=== PATIENT | male | born 1940 | race Caucasian/White ===

== ENCOUNTER 2021-08-10 09:14 | Inpatient (IN) | payer MEDICARE ==
[~2021-08-10] VITALS: Ht 172.7 cm; Wt 115.7 kg
[~2021-08-10 09:14] MED LIST: ACTOS 30 MG TAB30 MG PO; ADULT LOW DOSE81 MG PO; ALEVE220 MG PO; APAP650 PO; ARIXTRA SC; ASPIRIN325 OR; BACTRIM DS TAB1 EACH PO; FLUNISOLIDE25 M1 NS; GLUCOPHAGE1000 MG PO; GLUCOSAMINE &1 EACH PO; KEFLEX500 MG PO; KETOCONAZOLE60 GM TP; KLOR-CON 1010 MEQ PO; Keflex PO; LAMISIL15 GM TP; LANTUS SC; LASIX 40 MG TAB40 M1 OR; LISINOPRIL40 MG PO; NIASPAN ER 101000 M1 PO; NORCO 5-325 TA1 EACH PO; NORVASC10 MG PO; NOVOLOG100 UNIT/1 SQ; OXYCODONE HCL5 M1 PO; PERCOCET 5-3251 EACH PO; RESTASIS1 EACH OP; ROXICODONE5 M1 PO; SIMVASTATIN40 MG PO; SOTALOL80 MG PO; TRIAM60 TP; VESICARE10 M1 PO
[2021-08-10 09:23] VITALS: BP 175/87
--- NOTE | 2021-08-10 10:05 | EKG ---
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1940 Requested By: Elvis James Order Number: [id number] MD: Joey Hoskins Measurements Intervals [place] Rate: 108 P: [place]: QRS: -5 QRSD: 89 T: 242 QT: 338 QTc: 453 Interpretive Statements Atrial fibrillation Ventricular premature complex Low voltage, extremity and precordial leads Consider anterior infarct Baseline wander in lead(s) V3 Compared to ECG 04/02/2010 12:08:13 Ventricular premature complex(es) now present Low QRS voltage now present Myocardial infarct finding now present Sinus bradycardia no longer present Electronically Signed On 08-10-2021 10:04:53 CDT by Joey Hoskins [email or web address] <ELECTRONICALLY SIGNED> By: Joey Hoskins MD, FACC 08/10/21 1004 8 8 Joey Hoskins MD, FAC /EPI
[2021-08-10 10:19] LABS: ABSOLUTE BASOPHILS 0.1 thou/uL (0.0-0.2); ABSOLUTE EOSINOPHILS 0.1 thou/uL (0.0-0.7); ABSOLUTE LYMPHOCYTES 1.1 thou/uL (0.8-5.3); ABSOLUTE MONOCYTES 0.9 thou/uL (0.0-1.2); ABSOLUTE NEUTROPHILS 7.7 thou/uL (1.6-8.1); BASOPHILS 1.2 %; EOSINOPHILS 1.2 %; HEMATOCRIT 47.1 % (42.0-52.0); HEMOGLOBIN 15.8 gm/dL (14.0-18.0); LYMPHOCYTES 11.2 %; MCH 29.5 pg (26.0-34.0); MCHC 33.5 g/dL (28.0-37.0); MCV 88.2 fL (80.0-100.0); MONOCYTES 8.9 %; MPV 8.4 fl. (7.2-11.1); NUCLEATED RBCS 0 /100WBC; PLATELET COUNT* 257 thou/uL (150-400); POLYS 77.5 %; RBC 5.35 mil/uL (4.50-6.00); RDW-CV 15.6 % (10.5-14.5); WBC 9.9 thou/uL (4.0-11.0)
[2021-08-10 10:31] LABS: CALCIUM 8.7 mg/dL (8.5-10.1); CREATININE 0.9 mg/dL (0.6-1.3); POTASSIUM 4.1 mmol/L (3.5-5.1)
[2021-08-10 10:35] LABS: ALBUMIN 2.8 g/dL (3.4-5.0); TOTAL BILIRUBIN 0.8 mg/dL (<0.1-1.0); TOTAL PROTEIN 7.1 g/dL (6.4-8.2)
[2021-08-10 15:00] VITALS: BP 159/63
[2021-08-10 20:54] VITALS: BP 167/81
[2021-08-10 21:06] VITALS: BP 172/77
[2021-08-10 21:30] VITALS: BP 148/74
[2021-08-11 00:45] VITALS: BP 165/86
--- NOTE | 2021-08-11 02:05 | NUR ---
ADMIT NOTE: RECIEVED PT FROM ED, UPON ARRIVAL PT PLACED IN BED , NOTED PT PILI VERY WEAK. 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 SAT THEN INCREASED TO 95-97% LUNG SOUNDS WHEEZES IN UPPER BASES. PT PLACED ON HIGN FALL RISK PRECAUTIONS. DISCUSSED PLAN OF CARE,PT VERBALIZE UNDERSTANDING AND AGREEABLE.
[2021-08-11 04:27] VITALS: BP 154/71
[2021-08-11 04:28] LABS: ABSOLUTE EOSINOPHILS 0.1 thou/uL (0.0-0.7); ABSOLUTE LYMPHOCYTES 0.9 thou/uL (0.8-5.3); ABSOLUTE MONOCYTES 0.9 thou/uL (0.0-1.2); ABSOLUTE NEUTROPHILS 9.2 thou/uL (1.6-8.1); BASOPHILS 0.1 %; EOSINOPHILS 0.8 %; HEMATOCRIT 46.2 % (42.0-52.0); HEMOGLOBIN 15.3 gm/dL (14.0-18.0); LYMPHOCYTES 8.4 %; MCH 28.9 pg (26.0-34.0); MCV 87.5 fL (80.0-100.0); MONOCYTES 7.8 %; NUCLEATED RBCS 0 /100WBC; PLATELET COUNT* 268 thou/uL (150-400); POLYS 82.9 %; RBC 5.28 mil/uL (4.50-6.00); RDW-CV 15.4 % (10.5-14.5); WBC 11.1 thou/uL (4.0-11.0)
[2021-08-11 04:48] LABS: ALBUMIN 2.6 g/dL (3.4-5.0); ALKALINE PHOSPHATASE 72 U/L (46-116); ANION GAP 13 mmol/L (7-16); BUN 17 mg/dL (7-18); CALCIUM 8.7 mg/dL (8.5-10.1); CHLORIDE 103 mmol/L (98-107); CHOLESTEROL 122 mg/dL (<200); CO2 24 mmol/L (21-32); CREATININE 0.7 mg/dL (0.6-1.3); GLUCOSE 159 mg/dL (70-99); HDL CHOLESTEROL 31 mg/dL (>40); LDL CHOLESTEROL 76 mg/dL (<100); POTASSIUM 4.1 mmol/L (3.5-5.1); SGOT 23 U/L (15-37); SGPT 28 U/L (30-65); SODIUM 140 mmol/L (136-145); TC:HDL 3.9 Ratio (Not establshd); TOTAL BILIRUBIN 0.9 mg/dL (<0.1-1.0); TOTAL PROTEIN 6.9 g/dL (6.4-8.2); TRIGLYCERIDE 79 mg/dL (<150); VLDL 16 mg/dL (<40)
[2021-08-11 04:50] LABS: SERUM ASSESSMENT CLEAR
[2021-08-11 08:00] VITALS: BP 163/78
[2021-08-11 08:48] LABS: APTT 28.5 Seconds (25.0-31.3); INR 1.1; PROTIME 11.4 Seconds (9.20-11.50)
--- NOTE | 2021-08-11 10:03 | CON ---
[address] [address] CONSULTATION Name: ANA LAURA BERMUDEZ V Room: [address] IN M.R.#: [id number] Admission: 08/10/21 Attend Phys: Reginaldo Hernandez Discharge: Date of : 42 Report #: [id number] THIS REPORT FOR: cc: Wm Garcia Ahmad W. DO Blick, David R. MD [facility] ~ cc: Wm Garcia DO DATE OF CONSULTATION: 08/10/2021 CARDIOLOGY CONSULTATION HISTORY OF PRESENT ILLNESS: The patient is an 81-year-old single white male who came to the Emergency Room yesterday after he fell at home. The history is obtained from the patient. There are no family members available. There are no old records. The patient primarily gets his care at [facility]. He has a long history of atrial fibrillation and has been cardioverted several years ago. He currently follows with Dr. Kinsey at [facility]. He has been chronically anticoagulated with Eliquis. He has had no bleeding problems. He apparently had a stress test years ago. The patient stays active, caring for his grandchild. He has been exposed to COVID-19. Yesterday, he felt lightheaded and fell. He complained of being weak. He claims he tripped. There was no loss of consciousness. He denies recent chest pain, shortness of breath, palpitations, peripheral edema. He came to the Emergency Room and was admitted for further evaluation and treatment. PAST MEDICAL HISTORY: He has had knee replacement, carpal tunnel surgery, diabetes, sleep apnea, knee replacement, shoulder surgery, hypertension, diabetes, sleep apnea. He used to be on BiPAP, but no longer uses it. CURRENT MEDICATIONS: Include insulin, oxycodone, aspirin, metformin, VESIcare, simvastatin, niacin, Lasix, potassium, Actos, sotalol, lisinopril, and amlodipine. ALLERGIES: He has no known drug allergies. FAMILY HISTORY: His mom had heart disease. SOCIAL HISTORY: He is , lives in [place] by himself. Quit smoking years ago, rarely drinks alcohol. REVIEW OF SYSTEMS: He apparently had a stroke in 2019, felt to be secondary to his atrial fibrillation. He has asthma, uses inhaler. He has sleep apnea. No history of liver disease, kidney disease. He apparently was diagnosed with lymphoma in the past. He follows with an oncologist. [place] [address] CONSULTATION Name: ANA LAURA BERMUDEZ V Room: [address]#: [id number] Admission: 08/10/21 Attend Phys: Reginaldo Hernandez Discharge: Date of : 42 Report #: [id number] removed. No chronic skin condition. No psychiatric illness. PHYSICAL EXAMINATION: GENERAL: Revealed an obese elderly male, lying in bed, he appeared in no acute distress. VITAL SIGNS: He had a blood pressure of 140/80, pulse is 90. He was afebrile. HEENT: He was anicteric. Conjunctivae pink. Mucous membranes moist. NECK: Veins do not appear distended. No carotid bruits. CHEST: Clear to auscultation. HEART: Irregular rhythm, no significant murmur. ABDOMEN: Obese. EXTREMITIES: Had no pitting edema. SKIN: Cool and dry. NEUROLOGIC: Nonfocal. DIAGNOSTIC DATA: His ECG showed atrial fibrillation with increased ventricular response rate, occasional aberrantly conducted complex, septal Q-waves. His workup in the Emergency Room last night, he had a portable chest x-ray that showed diffuse infiltrates, mild cardiomegaly. He had a CT scan of the head that showed no acute abnormality. His lab work, his BUN 17, creatinine 0.9, potassium 4.1. Liver function studies were normal. Albumin 2.8. His hemoglobin was 15.8. His COVID antigen stat test was positive. IMPRESSION AND RECOMMENDATIONS: 1. Persistent atrial fibrillation. Rate controlled with beta jagdeep. I would consider adding diltiazem. I would continue chronic anticoagulation with Eliquis. I would not recommend attempts at repeat cardioversion. 2. COVID-19. 3. Obesity. 4. Diabetes. 5. Hypertension. The patient is on a beta jagdeep, calcium jagdeep and ARSALAN inhibitor. 6. Hyperlipidemia. The patient is on a statin drug. 7. Sleep apnea. The patient no longer uses BiPAP. 8. Previous tobacco abuse. 9. History of lymphoma. <ELECTRONICALLY SIGNED> By: Joey Hoskins MD, [facility] 08/11/21 1003 1337 1422David Boyd Hoskins MD, FACC /nt
--- NOTE | 2021-08-11 10:19 | EKG ---
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 : 1940 Requested By: Alem Alexander Order Number: [id number] MD: Joey Hoskins Measurements Intervals [place] Rate: 84 P: [place]: QRS: -10 QRSD: 93 T: -6 QT: 401 QTc: 475 Interpretive Statements Atrial fibrillation low voltage Probable anteroseptal infarct Compared to ECG 08/10/2021 09:19:41 Ventricular premature complex(es) no longer present Myocardial infarct finding still present Electronically Signed On 08-11-2021 10:19:11 CDT by Joey Hoskins [email or web address] <ELECTRONICALLY SIGNED> By: Joey Hoskins MD, FACC 08/11/21 1019 40 40 Joey Hoskins MD, FACC /EPI
[2021-08-11] MEDS ORDERED: CARDIZEM60 MG PO (10:43)
[2021-08-11] MEDS ORDERED: ELIQUIS5 MG PO (10:43)
[2021-08-11 13:46] VITALS: BP 163/78
[2021-08-12 05:36] LABS: GLYCOHEMOGLOBIN (HGB A1C) 9.9 % (4.8-5.6)
== END 2021-08-11 16:25 | disposition home or self-care (01) | DRG 177 ==
LOC: M.ERS 09:14 → M.TBA-ER 10:58 → M.ORTHSURG 21:30
PROVIDERS: Emergency Medicine Emergency Medical Services; ADMIT Internal Medicine; ATTEND Internal Medicine
DX: U07.1 COVID-19 (principal); J12.82 Pneumonia due to coronavirus disease 2019; I48.19 Other persistent atrial fibrillation; Z96.651 Presence of right artificial knee joint; I10 Essential (primary) hypertension; E11.9 Type 2 diabetes mellitus without complications; E66.9 Obesity, unspecified; J30.2 Other seasonal allergic rhinitis; E78.5 Hyperlipidemia, unspecified; Z82.49 Family history of ischemic heart disease and other diseases of the circulatory system; Z68.38 Body mass index [BMI] 38.0-38.9, adult; Z85.72 Personal history of non-Hodgkin lymphomas; Z79.899 Other long term (current) drug therapy; Z28.21 Immunization not carried out because of patient refusal

== ENCOUNTER 2021-08-17 21:52 | Inpatient (IN) | payer MEDICARE ==
[~2021-08-17] VITALS: Ht 172.7 cm; Wt 115.7 kg
[~2021-08-17 21:52] MED LIST changes: +CARDIZEM60 MG PO; +ELIQUIS5 MG PO
[2021-08-17 21:55] VITALS: BP 179/93
[2021-08-17 22:33] LABS: ABSOLUTE EOSINOPHILS 0.1 thou/uL (0.0-0.7); ABSOLUTE LYMPHOCYTES 1.8 thou/uL (0.8-5.3); ABSOLUTE MONOCYTES 0.9 thou/uL (0.0-1.2); ABSOLUTE NEUTROPHILS 7.2 thou/uL (1.6-8.1); BASOPHILS 0.3 %; EOSINOPHILS 1.4 %; HEMOGLOBIN 16.9 gm/dL (14.0-18.0); LYMPHOCYTES 17.6 %; MCH 29.4 pg (26.0-34.0); MCHC 33.2 g/dL (28.0-37.0); MCV 88.6 fL (80.0-100.0); MONOCYTES 8.5 %; NUCLEATED RBCS 0 /100WBC; PLATELET COUNT* 373 thou/uL (150-400); POLYS 72.2 %; RBC 5.76 mil/uL (4.50-6.00); RDW-CV 15.4 % (10.5-14.5)
[2021-08-17 22:46] LABS: CALCIUM 9.2 mg/dL (8.5-10.1); CREATININE 1.1 mg/dL (0.6-1.3); POTASSIUM 4.2 mmol/L (3.5-5.1)
[2021-08-17 22:50] LABS: ALBUMIN 2.8 g/dL (3.4-5.0); TOTAL BILIRUBIN 0.6 mg/dL (<0.1-1.0); TOTAL PROTEIN 7.8 g/dL (6.4-8.2)
[2021-08-18 00:32] LABS: URINE BILIRUBIN NEGATIVE (Negative); URINE BLOOD TRACE (Negative); URINE CLARITY CLEAR; URINE COLOR YELLOW; URINE GLUCOSE-RANDOM 3+ (Negative); URINE KETONES 1+ (Negative); URINE LEUKOCYTES-REFLEX NEGATIVE (Negative); URINE NITRITE-REFLEX NEGATIVE (Negative); URINE PROTEIN TRACE (Negative); URINE SPECIFIC GRAVITY 1.025 (1.005-1.030); URINE UROBILINOGEN 0.2 E.U./dl (0.2-1.0)
[2021-08-18] MEDS ORDERED: CHILDREN'S ZYRT10 M1 PO (01:02)
[2021-08-18] MEDS ORDERED: JARDIANCE25 MG PO (01:03)
[2021-08-18] MEDS ORDERED: GLUCOSAMINE H1500 MG PO (01:03)
[2021-08-18] MEDS ORDERED: PAMELOR25 MG PO (01:03)
[2021-08-18] MEDS ORDERED: LIPITOR40 MG PO (01:03)
[2021-08-18 06:24] VITALS: BP 150/86
--- NOTE | 2021-08-18 11:32 | EKG ---
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1940 Requested By: Alem Alexander Order Number: [id number] MD: Chepe Collins Measurements Intervals [place] Rate: 117 P: [place]: QRS: 4 QRSD: 86 T: 210 QT: 350 QTc: 489 Interpretive Statements Atrial fibrillation Low voltage, extremity leads Consider anterior infarct Nonspecific T abnormalities, lateral leads Baseline wander in lead(s) V4 Compared to ECG 08/10/2021 20:41:07 T-wave abnormality now present Myocardial infarct finding still present Electronically Signed On 08-18-2021 11:32:39 CDT by Chepe Collins [email or web address] <ELECTRONICALLY SIGNED> By: Julieta Collins MD, [facility] 08/18/21 1132 28 28 Julieta Collins MD, [facility] /EPI
[2021-08-18 11:37] VITALS: BP 153/81
[2021-08-18 14:08] VITALS: BP 145/88
[2021-08-19] VITALS (7 sets, daily range): BP systolic 143–170; BP diastolic 70–104
[2021-08-19 09:39] LABS: HEMATOCRIT 56.4 % (42.0-52.0); MCH 29.4 pg (26.0-34.0); MCHC 31.9 g/dL (28.0-37.0); MCV 92.2 fL (80.0-100.0); MPV 8.2 fl. (7.2-11.1); RBC 6.11 mil/uL (4.50-6.00); RDW-CV 16.1 % (10.5-14.5)
[2021-08-19 09:49] LABS: CALCIUM 8.9 mg/dL (8.5-10.1); CREATININE 0.9 mg/dL (0.6-1.3); POTASSIUM 3.2 mmol/L (3.5-5.1)
[2021-08-20 00:45] VITALS: BP 142/84
[2021-08-20 04:00] VITALS: BP 168/84
[2021-08-20 08:00] VITALS: BP 135/58
[2021-08-20 08:08] LABS: CALCIUM 8.8 mg/dL (8.5-10.1); CREATININE 0.9 mg/dL (0.6-1.3); POTASSIUM 3.4 mmol/L (3.5-5.1)
[2021-08-20 12:01] VITALS: BP 149/73
[2021-08-20 15:34] VITALS: BP 105/50
[2021-08-20 21:00] VITALS: BP 138/64
[2021-08-21 04:00] VITALS: BP 139/69
[2021-08-21 04:42] LABS: HEMATOCRIT 48.3 % (42.0-52.0); MCH 29.1 pg (26.0-34.0); MCHC 32.7 g/dL (28.0-37.0); MPV 8.6 fl. (7.2-11.1); RBC 5.43 mil/uL (4.50-6.00); RDW-CV 15.4 % (10.5-14.5); WBC 11.9 thou/uL (4.0-11.0)
[2021-08-21 05:17] LABS: CALCIUM 8.7 mg/dL (8.5-10.1); CREATININE 1.1 mg/dL (0.6-1.3); POTASSIUM 3.8 mmol/L (3.5-5.1)
[2021-08-21 05:26] LABS: HEMOGLOBIN 15.8 gm/dL (14.0-18.0)
[2021-08-21 08:37] VITALS: BP 121/73
[2021-08-21 12:28] VITALS: BP 124/70
[2021-08-21 15:42] VITALS: BP 131/63
[2021-08-21 22:30] VITALS: BP 139/77
[2021-08-22 00:34] VITALS: BP 186/86
[2021-08-22 02:06] LABS: GLYCOHEMOGLOBIN (HGB A1C) 10.1 % (4.8-5.6)
[2021-08-22 08:00] VITALS: BP 162/72
[2021-08-22] MEDS ORDERED: LEVOFLOXACIN750 MG PO (11:09)
[2021-08-22 12:00] VITALS: BP 128/74
[2021-08-22 13:56] VITALS: BP 128/74
== END 2021-08-22 15:35 | DRG 637 ==
LOC: M.ERS 21:52 → M.TBA-ER 08-18 00:05 → M.ORTHSURG 08-18 01:18
PROVIDERS: Internal Medicine; Personal Emergency Response Attendant; ADMIT Internal Medicine; ATTEND Internal Medicine
DX: E11.65 Type 2 diabetes mellitus with hyperglycemia (principal); G93.41 Metabolic encephalopathy; I16.1 Hypertensive emergency; Z20.822 Contact with and (suspected) exposure to COVID-19; Z96.651 Presence of right artificial knee joint; I48.91 Unspecified atrial fibrillation; Z60.2 Problems related to living alone; I10 Essential (primary) hypertension; J30.2 Other seasonal allergic rhinitis; Z86.73 Personal history of transient ischemic attack (TIA), and cerebral infarction without residual deficits; Z23 Encounter for immunization; Z79.899 Other long term (current) drug therapy